=== PATIENT | female | born 1980 | race Caucasian/White ===

== ENCOUNTER 2018-09-13 23:10 | Inpatient (IN) | payer MEDICAID ==
[~2018-09-13] VITALS: Ht 160 cm; Wt 73.0 kg
[~2018-09-13 23:10] MED LIST: PREN1TAB49 PO; SS SC
[2018-09-13 23:26] VITALS: Ht 160 cm; Wt 73.0 kg
[2018-09-13 23:28] VITALS: BP 128/71; PULSE 71; RESP 18
[2018-09-14] MEDS ORDERED: BUTORPHANOL 2 MG INJ IV PRN (01:00)
[2018-09-14] MEDS ORDERED: OXYTOCIN 30 UNITS/LR 500 ML IV PRN ×2 (01:00→12:00)
[2018-09-14] MEDS ORDERED: CARBOPROST 250 MCG INJ IM PRN ×2 (01:00→12:00)
[2018-09-14] MEDS ORDERED: AMPICILLIN 1 GM/NS (PMX) 50 ML IV PRN (01:00)
[2018-09-14] MEDS ORDERED: OXYTOCIN 30 UNITS/LR 500 ML IV SCH ×2 (01:00)
[2018-09-14] MEDS ORDERED: METHYLERGONOVINE 0.2 MG INJ IM PRN ×2 (01:00→12:00)
[2018-09-14] MEDS ORDERED: MISOPROSTOL 200 MCG TAB PR PRN ×2 (01:00→12:00)
[2018-09-14] MEDS ORDERED: IBUPROFEN 600 MG TAB PO PRN (01:00)
[2018-09-14] MEDS ORDERED: LIDOCAINE 1% (MPF) 30 ML INJ INJ PRN (01:00)
[2018-09-14] MEDS ORDERED: AMPICILLIN 2 GM/NS (PMX) 100 ML IV PRN (01:00)
--- NOTE | 2018-09-14 01:49 | TRIAGE ---
OB Triage Datetime Report Generated by CPN: 09/14/2018 01:48 Datetime: 09/14/2018 00:59 Assessment Type: Admission Assessment Time of Arrival: 09/14/2018 00:45 EGA: 36.4 Arrived By: Ambulatory Arrived From: Home Vaginal Bleeding: None Maternal Assessment Level of Consciousness: Fully Conscious DTR's/Clonus: DTRs 2+; No Clonus Headache: Denies Blurred Vision: No Respiratory Effort: Unlabored; Regular Rhythm; Equal Expansion Breath Sounds, Left: Clear and Equal Breath Sounds, Right: Clear and Equal Nausea/Vomiting: Denies RUQ Epigastric Pain: Denies Lower Extremities Edema: None Degree: None Upper Extremities Edema: None Degree: None Facial Edema: None Fall Risk Assessment History of Falling: (0) No Secondary Diagnosis: (0) No Ambulatory Aid: (0) Bedrest/Nurse Assist IV Therapy: (20) Yes Gait: (0) Normal/Bedrest/Immobile Mental Status: (0) Oriented to Own Ability Fall Score: 20 Fall Risk Score Definition: No Risk: No action required Pain Assessment Pain Scale: 5 Pain Presence: Intermittent Pain Type: Contraction Pain Location: Abdomen; Back Pain Goal: 2 Pain Assessment Comments: PT STATES SHE MAY WANT EPIDURAL AT A LATER TIME Membrane Status: Intact Datetime: 09/14/2018 00:00 Stage of : OB Triage Labor Evaluation Frequency: IRREG Monitor Mode: External Duration (sec)2399: 50-140 Quality: Mild Pattern: Normal: <= 5 Contractions in 10 Minutes Resting Tone [place]: Relaxed Heart Rate FHR Baseline Rate: 140 Monitor Mode: External US Variability: Moderate 6-25 bpm Accelerations: 15X15 Decelerations: None Category: Category I Pain Assessment Pain Scale: 0 Pain Presence: None/Denies Pain Goal: 3 Pain Assessment Comments: STATED ON /OFF PAIN FOR 3 DAYS Datetime: 09/13/2018 23:49 Vaginal Exam Dilatation (cms): 3.5 Effacement (%): 70 Station: -3 Exam By: URBANO Vaginal Bleeding: None Cervix, Consistency: Soft Cervix, Position: Posterior Datetime: 09/13/2018 23:30 Stage of : OB Triage Assessment Type: Triage Maternal Assessment Level of Consciousness: Fully Conscious DTR's/Clonus: DTRs 2+; No Clonus Headache: Denies Blurred Vision: No Respiratory Effort: Unlabored; Regular Rhythm; Equal Expansion Breath Sounds, Left: Clear and Equal Breath Sounds, Right: Clear and Equal Nausea/Vomiting: Denies RUQ Epigastric Pain: Denies Lower Extremities Edema: None Upper Extremities Edema: None Facial Edema: None Temperature Route: Oral Fall Risk Assessment History of Falling: (0) No Secondary Diagnosis: (0) No Ambulatory Aid: (0) Bedrest/Nurse Assist IV Therapy: (0) No Gait: (0) Normal/Bedrest/Immobile Mental Status: (0) Oriented to Own Ability Fall Score: 0 Fall Risk Score Definition: No Risk: No action required Datetime: 09/13/2018 23:15 Time of Arrival: 09/13/2018 23:00 EGA: 36.3 Arrived By: Wheelchair Arrived From: Home Chief Complaint: CONTRACTIONS FOR 3 DAYS Movement: Present Contractions: Irregular Rupture of Membranes: Denies Vaginal Bleeding: None Vaginal Discharge: Denies Patient Complaints: Contractions Additional Patient Complaints: BETAMETHASONE X2(08/15/18 AND 08/16/18) Time Provider Notified: 09/13/2018 23:55 Provider Notified: ABUSLEME Initial Plan: EFM, VE Datetime: 08/19/2018 14:38 Labor Evaluation Frequency: 0 Monitor Mode: External Duration (sec)2399: 0 Resting Tone [place]: Relaxed Heart Rate FHR Baseline Rate: 150 Monitor Mode: External US FHR Baseline Changes: No Baseline Change Variability: Moderate 6-25 bpm Accelerations: 10X10 Decelerations: None Category: Category I Datetime: 08/19/2018 14:00 Stage of : Antepartum Labor Evaluation Frequency: 0 Monitor Mode: External Resting Tone [place]: Relaxed Heart Rate FHR Baseline Rate: 150 Monitor Mode: External US FHR Baseline Changes: No Baseline Change Variability: Moderate 6-25 bpm Accelerations: 10X10 Decelerations: None Category: Category I Datetime: 08/19/2018 13:00 Stage of : Antepartum Labor Evaluation Frequency: 0 Monitor Mode: External Resting Tone [place]: Relaxed Heart Rate FHR Baseline Rate: 145 Monitor Mode: External US FHR Baseline Changes: No Baseline Change Variability: Moderate 6-25 bpm Accelerations: 10X10 Decelerations: None Category: Category I Datetime: 08/19/2018 12:21 Bedside Blood Glucose: 79 Datetime: 08/19/2018 12:00 Stage of : Antepartum Labor Evaluation Frequency: OCCASSIONAL Monitor Mode: External Duration (sec)2399: 40-60 Quality: Mild Resting Tone [place]: Relaxed Heart Rate FHR Baseline Rate: 150 Monitor Mode: External US FHR Baseline Changes: No Baseline Change Variability: Moderate 6-25 bpm Accelerations: 10X10 Decelerations: None Category: Category I Datetime: 08/19/2018 11:00 Stage of : Antepartum Monitor Mode: External Quality: Mild Resting Tone [place]: Relaxed Contraction Comments: MILD UTERINE IRRITABILITY NOTED WITH 2 CTX'S ABOUT 60S OVER PAST HR. PT DENIE S ANY PAIN AT THIS TIME. Heart Rate FHR Baseline Rate: 150 Monitor Mode: External US FHR Baseline Changes: No Baseline Change Variability: Moderate 6-25 bpm Accelerations: 10X10 Decelerations: None Category: Category I Datetime: 08/19/2018 10:19 Comments: RN REMAINS AT BS ADJUSTING EFM, MOVEMENT NOTED Datetime: 08/19/2018 10:00 Monitor Mode: External Quality: Mild Resting Tone [place]: Relaxed Contraction Comments: UTERINE IRRITABILITY NOTED Heart Rate FHR Baseline Rate: 150 Monitor Mode: External US Variability: Moderate 6-25 bpm Accelerations: None Decelerations: None Category: Category I Datetime: 08/19/2018 09:00 Stage of : Antepartum Temperature Route: Oral Labor Evaluation Frequency: OCCASSIONAL Monitor Mode: External Duration (sec)2399: 40-90 Quality: Mild Resting Tone [place]: Relaxed Contraction Comments: PT DENIES FEELING CTX'S OR PAIN AT THIS TIME, REPORTS FEELING "A LITTLE PRESS URE NOW AND THEN." Heart Rate FHR Baseline Rate: 145 Monitor Mode: External US FHR Baseline Changes: No Baseline Change Variability: Moderate 6-25 bpm Accelerations: 10X10 Decelerations: None Category: Category I Datetime: 08/19/2018 08:00 Assessment Type: Ongoing Assessment Maternal Assessment Level of Consciousness: Fully Conscious DTR's/Clonus: DTRs 2+ Headache: Denies Blurred Vision: No Respiratory Effort: Unlabored Breath Sounds, Left: Clear and Equal Breath Sounds, Right: Clear and Equal Nausea/Vomiting: Denies RUQ Epigastric Pain: Denies Lower Extremities Edema: None Degree: None Upper Extremities Edema: None Degree: None Facial Edema: None Fall Risk Assessment History of Falling: (0) No Secondary Diagnosis: (15) Yes Ambulatory Aid: (0) Bedrest/Nurse Assist IV Therapy: (20) Yes Gait: (0) Normal/Bedrest/Immobile Mental Status: (0) Oriented to Own Ability Fall Score: 35 Fall Risk Score Definition: Low Risk: Please see standard fall prevention interventions Monitor Mode: External Quality: Mild Resting Tone [place]: Relaxed Contraction Comments: PT DENIES FEELING CTX'S AT THIS TIME Heart Rate FHR Baseline Rate: 145 Monitor Mode: External US FHR Baseline Changes: No Baseline Change Variability: Moderate 6-25 bpm Accelerations: 10X10 Decelerations: None Category: Category I Datetime: 08/19/2018 07:00 Stage of : Antepartum Assessment Type: Ongoing Assessment Labor Evaluation Frequency: irregular Monitor Mode: External Duration (sec)2399: 50-80 Pattern: Normal: <= 5 Contractions in 10 Minutes Resting Tone [place]: Relaxed Heart Rate FHR Baseline Rate: 150 Monitor Mode: External US Variability: Moderate 6-25 bpm Accelerations: 15X15 Decelerations: None Category: Category I Datetime: 08/19/2018 06:45 Monitor Mode: External Monitor Mode: External US Datetime: 08/19/2018 06:00 Stage of : Antepartum Labor Evaluation Frequency: irregular Monitor Mode: External Duration (sec)2399: 50-80 Pattern: Normal: <= 5 Contractions in 10 Minutes Resting Tone [place]: Relaxed Heart Rate FHR Baseline Rate: 145 Monitor Mode: External US Variability: Moderate 6-25 bpm Accelerations: 15X15 Decelerations: None Category: Category I Datetime: 08/19/2018 05:37 Monitor Mode: External Monitor Mode: External US Datetime: 08/19/2018 05:00 Stage of : Antepartum Labor Evaluation Frequency: irregular Monitor Mode: External Duration (sec)2399: 50-60 Pattern: Normal: <= 5 Contractions in 10 Minutes Resting Tone [place]: Relaxed Heart Rate FHR Baseline Rate: 145 Monitor Mode: External US Variability: Moderate 6-25 bpm Accelerations: 15X15 Decelerations: None Category: Category I Datetime: 08/19/2018 04:00 Stage of : Antepartum Labor Evaluation Frequency: irregular Monitor Mode: External Duration (sec)2399: 50-60 Pattern: Normal: <= 5 Contractions in 10 Minutes Resting Tone [place]: Relaxed Heart Rate FHR Baseline Rate: 145 Monitor Mode: External US Variability: Moderate 6-25 bpm Accelerations: 15X15 Decelerations: None Category: Category I Datetime: 08/19/2018 03:52 Monitor Mode: External Monitor Mode: External US Datetime: 08/19/2018 03:00 Stage of : Antepartum Temperature Route: Oral Labor Evaluation Frequency: irregular x3 Monitor Mode: External Duration (sec)2399: 50-60 Pattern: Normal: <= 5 Contractions in 10 Minutes Resting Tone [place]: Relaxed Heart Rate FHR Baseline Rate: 145 Monitor Mode: External US Variability: Moderate 6-25 bpm Accelerations: 15X15 Decelerations: None Category: Category I Datetime: 08/19/2018 02:00 Stage of : Antepartum Labor Evaluation Frequency: X1 Monitor Mode: External Duration (sec)2399: 70 (Annotations: UTERINE IRRITABILITY NOTED. ) Quality: Mild Heart Rate FHR Baseline Rate: 145 Monitor Mode: External US FHR Baseline Changes: No Baseline Change Variability: Moderate 6-25 bpm Accelerations: 15X15 Decelerations: Variable Category: Category II Pain Presence: None/Denies Datetime: 08/19/2018 01:00 Stage of : Antepartum Labor Evaluation Frequency: X1 Monitor Mode: External Duration (sec)2399: 70 Quality: Mild Heart Rate FHR Baseline Rate: 155 Monitor Mode: External US FHR Baseline Changes: No Baseline Change Variability: Moderate 6-25 bpm Accelerations: 15X15 Category: Category I Pain Presence: None/Denies Datetime: 08/19/2018 00:00 Stage of : Antepartum Monitor Mode: External Duration (sec)2399: 40-60 (Annotations: UTERINE IRRITABILITY NOTED. ) Heart Rate FHR Baseline Rate: 155 Monitor Mode: External US FHR Baseline Changes: No Baseline Change Variability: Moderate 6-25 bpm Accelerations: 15X15 Category: Category I Pain Presence: None/Denies Datetime: 08/18/2018 23:00 Stage of : Antepartum Monitor Mode: External Duration (sec)2399: 40-60 (Annotations: UTERINE IRRITABILITY NOTED. ) Heart Rate FHR Baseline Rate: 155 Monitor Mode: External US FHR Baseline Changes: No Baseline Change Variability: Moderate 6-25 bpm Accelerations: 15X15 Decelerations: Variable Category: Category I Pain Presence: None/Denies Datetime: 08/18/2018 22:16 Stage of : Antepartum Datetime: 08/18/2018 22:00 Stage of : Antepartum Monitor Mode: External Duration (sec)2399: 40-60 (Annotations: UTERINE IRRITABILITY NOTED. ) Heart Rate FHR Baseline Rate: 150 Monitor Mode: External US FHR Baseline Changes: No Baseline Change Variability: Moderate 6-25 bpm Accelerations: 15X15 Category: Category I Pain Presence: None/Denies Datetime: 08/18/2018 21:00 Stage of : Antepartum Monitor Mode: External Duration (sec)2399: 30-70 Heart Rate FHR Baseline Rate: 155 Monitor Mode: External US FHR Baseline Changes: No Baseline Change Variability: Moderate 6-25 bpm Accelerations: 15X15 Decelerations: Variable Category: Category II Pain Presence: None/Denies Datetime: 08/18/2018 20:41 Assessment Type: Ongoing Assessment Maternal Assessment Level of Consciousness: Fully Conscious DTR's/Clonus: DTRs 2+; No Clonus Headache: Denies Blurred Vision: No Respiratory Effort: Unlabored; Regular Rhythm; Equal Expansion Nausea/Vomiting: Denies RUQ Epigastric Pain: Denies Lower Extremities Edema: None Degree: None Upper Extremities Edema: None Degree: None Facial Edema: None Fall Risk Assessment History of Falling: (0) No Secondary Diagnosis: (0) No Ambulatory Aid: (0) Bedrest/Nurse Assist IV Therapy: (0) No Gait: (0) Normal/Bedrest/Immobile Mental Status: (0) Oriented to Own Ability Fall Score: 0 Fall Risk Score Definition: No Risk: No action required Datetime: 08/18/2018 20:00 Stage of : Antepartum Temperature Route: Oral Labor Evaluation Frequency: 0 Monitor Mode: External Heart Rate FHR Baseline Rate: 160 Monitor Mode: External US FHR Baseline Changes: No Baseline Change Variability: Moderate 6-25 bpm Accelerations: 15X15 Decelerations: None Category: Category I Pain Assessment Pain Scale: 0 Pain Presence: None/Denies Pain Type: N/A Pain Goal: 0 Datetime: 08/18/2018 19:00 Labor Evaluation Frequency: X5 Monitor Mode: External Duration (sec)2399: 60-80 Quality: Mild Pattern: Normal: <= 5 Contractions in 10 Minutes Resting Tone [place]: Relaxed Heart Rate FHR Baseline Rate: 150 Monitor Mode: External US FHR Baseline Changes: No Baseline Change Variability: Moderate 6-25 bpm Accelerations: 10X10 Decelerations: None Category: Category I Pain Assessment Pain Scale: 0 Pain Presence: None/Denies Pain Type: N/A Pain Goal: 0 Datetime: 08/18/2018 18:01 Labor Evaluation Frequency: X6 Monitor Mode: External Duration (sec)2399: 40-60 Quality: Mild Pattern: Normal: <= 5 Contractions in 10 Minutes Resting Tone [place]: Relaxed Heart Rate FHR Baseline Rate: 140 Monitor Mode: External US FHR Baseline Changes: No Baseline Change Variability: Moderate 6-25 bpm Accelerations: 10X10 Decelerations: None Category: Category I Pain Assessment Pain Scale: 0 Pain Presence: None/Denies Pain Type: N/A Pain Goal: 0 Datetime: 08/18/2018 17:00 Labor Evaluation Frequency: X9 Monitor Mode: External Duration (sec)2399: 30-60 Quality: Mild Pattern: Normal: <= 5 Contractions in 10 Minutes Resting Tone [place]: Relaxed Heart Rate FHR Baseline Rate: 150 Monitor Mode: External US FHR Baseline Changes: No Baseline Change Variability: Moderate 6-25 bpm Accelerations: 10X10 Decelerations: None Category: Category I Pain Assessment Pain Scale: 0 Pain Presence: None/Denies Pain Type: N/A Pain Goal: 0 Datetime: 08/18/2018 16:00 Labor Evaluation Frequency: X4 Monitor Mode: External Duration (sec)2399: 60 Quality: Mild Pattern: Normal: <= 5 Contractions in 10 Minutes Resting Tone [place]: Relaxed Heart Rate FHR Baseline Rate: 150 Monitor Mode: External US FHR Baseline Changes: No Baseline Change Variability: Moderate 6-25 bpm Accelerations: 15X15 Decelerations: None Category: Category I Pain Assessment Pain Scale: 0 Pain Presence: None/Denies Pain Type: N/A Pain Goal: 0 Membrane Status: Intact Datetime: 08/18/2018 15:00 Labor Evaluation Frequency: x4 Monitor Mode: External Duration (sec)2399: 30-40 Quality: Mild Pattern: Normal: <= 5 Contractions in 10 Minutes Resting Tone [place]: Relaxed Heart Rate FHR Baseline Rate: 150 Monitor Mode: External US FHR Baseline Changes: No Baseline Change Variability: Moderate 6-25 bpm Accelerations: 10X10 Decelerations: None Category: Category I Pain Assessment Pain Scale: 0 Pain Presence: None/Denies Pain Type: N/A Pain Goal: 0 Membrane Status: Intact Datetime: 08/18/2018 14:00 Labor Evaluation Frequency: IRRITABILITY Monitor Mode: External Duration (sec)2399: 20-30 Heart Rate FHR Baseline Rate: 160 Monitor Mode: External US FHR Baseline Changes: No Baseline Change Variability: Moderate 6-25 bpm Accelerations: 15X15 Decelerations: None Category: Category I Pain Assessment Pain Scale: 0 Pain Presence: None/Denies Pain Type: N/A Pain Goal: 0 Datetime: 08/18/2018 13:00 Labor Evaluation Frequency: 2-17 Monitor Mode: External Duration (sec)2399: 40-60 Quality: Mild Pattern: Normal: <= 5 Contractions in 10 Minutes Resting Tone [place]: Relaxed Heart Rate FHR Baseline Rate: 160 Monitor Mode: External US FHR Baseline Changes: No Baseline Change Variability: Moderate 6-25 bpm Accelerations: 10X10 Decelerations: None Category: Category I Pain Assessment Pain Scale: 0 Pain Presence: None/Denies Pain Type: N/A Pain Goal: 0 Datetime: 08/18/2018 12:00 Labor Evaluation Frequency: X1 Monitor Mode: External Duration (sec)2399: 60 Quality: Mild Pattern: Normal: <= 5 Contractions in 10 Minutes Resting Tone [place]: Relaxed Heart Rate FHR Baseline Rate: 155 Monitor Mode: External US FHR Baseline Changes: No Baseline Change Variability: Moderate 6-25 bpm Accelerations: 15X15 Decelerations: None Category: Category I Pain Assessment Pain Scale: 0 Pain Presence: None/Denies Pain Type: N/A Pain Goal: 0 Membrane Status: Intact Datetime: 08/18/2018 11:00 Labor Evaluation Frequency: X6 Monitor Mode: External Duration (sec)2399: 40 Quality: Mild Pattern: Normal: <= 5 Contractions in 10 Minutes Resting Tone [place]: Relaxed Heart Rate FHR Baseline Rate: 150 Monitor Mode: External US FHR Baseline Changes: No Baseline Change Variability: Moderate 6-25 bpm Accelerations: 10X10 Decelerations: None Category: Category I Pain Assessment Pain Scale: 0 Pain Presence: None/Denies Pain Type: N/A Pain Goal: 0 Datetime: 08/18/2018 10:00 Labor Evaluation Frequency: X2 Monitor Mode: External Duration (sec)2399: 60 Quality: Mild Pattern: Normal: <= 5 Contractions in 10 Minutes Resting Tone [place]: Relaxed Heart Rate FHR Baseline Rate: 150 Monitor Mode: External US FHR Baseline Changes: No Baseline Change Variability: Moderate 6-25 bpm Accelerations: 10X10 Decelerations: None Category: Category I Pain Assessment Pain Scale: 0 Pain Presence: None/Denies Pain Type: N/A Pain Goal: 0 Datetime: 08/18/2018 09:00 Labor Evaluation Frequency: 6-17 Monitor Mode: External Duration (sec)2399: 60-100 Quality: Mild Pattern: Normal: <= 5 Contractions in 10 Minutes Resting Tone [place]: Relaxed Heart Rate FHR Baseline Rate: 155 Monitor Mode: External US FHR Baseline Changes: No Baseline Change Variability: Moderate 6-25 bpm Accelerations: 10X10 Decelerations: None Category: Category I Pain Assessment Pain Scale: 0 Pain Presence: None/Denies Pain Type: N/A Pain Goal: 0 Datetime: 08/18/2018 07:55 Assessment Type: Ongoing Assessment Maternal Assessment Level of Consciousness: Fully Conscious DTR's/Clonus: DTRs 2+; No Clonus Headache: Denies Blurred Vision: No Respiratory Effort: Unlabored; Regular Rhythm; Equal Expansion Nausea/Vomiting: Denies RUQ Epigastric Pain: Denies Lower Extremities Edema: None Degree: None Upper Extremities Edema: None Degree: None Facial Edema: None Fall Risk Assessment History of Falling: (0) No Secondary Diagnosis: (0) No Ambulatory Aid: (0) Bedrest/Nurse Assist IV Therapy: (0) No Gait: (0) Normal/Bedrest/Immobile Mental Status: (0) Oriented to Own Ability Fall Score: 0 Fall Risk Score Definition: No Risk: No action required Datetime: 08/18/2018 07:51 Labor Evaluation Frequency: 1-5 Monitor Mode: External Duration (sec)2399: 30-90 Quality: Mild Pattern: Normal: <= 5 Contractions in 10 Minutes Resting Tone [place]: Relaxed Heart Rate FHR Baseline Rate: 145 Monitor Mode: External US FHR Baseline Changes: No Baseline Change Variability: Moderate 6-25 bpm Accelerations: 10X10 Decelerations: None Category: Category I Pain Assessment Pain Scale: 0 Pain Presence: None/Denies Pain Type: N/A Pain Goal: 0 Membrane Status: Intact Datetime: 08/18/2018 07:00 Labor Evaluation Frequency: irregular with irritability Monitor Mode: External Duration (sec)2399: 40-100 Heart Rate FHR Baseline Rate: 145 Monitor Mode: External US Variability: Moderate 6-25 bpm Accelerations: 15X15 Decelerations: None Datetime: 08/18/2018 06:49 Pain Assessment Comments: Patient appears comfortable and is sleeping. Datetime: 08/18/2018 06:05 Stage of : Antepartum Pain Assessment Pain Scale: 0 Pain Presence: None/Denies Pain Type: N/A Pain Assessment Comments: Patient denies feeling pain at this time Datetime: 08/18/2018 06:00 Labor Evaluation Frequency: 2-21 with irritability Monitor Mode: External Duration (sec)2399: 40-180 Heart Rate FHR Baseline Rate: 145 Monitor Mode: External US Variability: Minimal - Undetectable to <=5 bpm Accelerations: 15X15 Decelerations: None Datetime: 08/18/2018 05:00 Labor Evaluation Frequency: x6 with irritability Monitor Mode: External Duration (sec)2399: 40-60 Heart Rate FHR Baseline Rate: 150 Monitor Mode: External US Variability: Moderate 6-25 bpm Accelerations: 10X10 Decelerations: Variable Datetime: 08/18/2018 04:49 Pain Assessment Pain Scale: 0 Pain Presence: None/Denies Pain Type: N/A Pain Assessment Comments: Patient denies feeling contractions at this time. Datetime: 08/18/2018 04:25 Pain Assessment Pain Scale: 0 Pain Presence: None/Denies Pain Type: N/A Pain Assessment Comments: Patient appears comfortable and is sleeping between care. Patient denies feeling contractions at this time. Datetime: 08/18/2018 04:00 Labor Evaluation Frequency: x1 with irritability Monitor Mode: External Duration (sec)2399: 60 Heart Rate FHR Baseline Rate: 150 Monitor Mode: External US Variability: Moderate 6-25 bpm Accelerations: 15X15 Decelerations: None Datetime: 08/18/2018 03:13 Pain Assessment Pain Scale: 0 Pain Presence: None/Denies Pain Type: N/A Pain Assessment Comments: Patient appears comfortable and is sleeping between care. Patient denies feeling contractions at this time. Datetime: 08/18/2018 03:10 Stage of : Antepartum Temperature Route: Oral Datetime: 08/18/2018 03:00 Labor Evaluation Frequency: x2 with irritabiity Monitor Mode: External Duration (sec)2399: 50-110 Heart Rate FHR Baseline Rate: 145 Monitor Mode: External US Variability: Minimal - Undetectable to <=5 bpm Accelerations: None Decelerations: None Datetime: 08/18/2018 02:00 Labor Evaluation Frequency: irritability Monitor Mode: External Heart Rate FHR Baseline Rate: 150 Monitor Mode: External US Variability: Minimal - Undetectable to <=5 bpm Accelerations: None Decelerations: None Datetime: 08/18/2018 01:16 Pain Assessment Comments: Patient appears comfortable and is snoring while she is sleeping. Datetime: 08/18/2018 01:15 Labor Evaluation Frequency: none Monitor Mode: External Heart Rate FHR Baseline Rate: 150 Monitor Mode: External US Variability: Minimal - Undetectable to <=5 bpm Accelerations: None Decelerations: Variable Datetime: 08/18/2018 00:00 Labor Evaluation Frequency: none Monitor Mode: External Heart Rate FHR Baseline Rate: 145 Monitor Mode: External US Variability: Minimal - Undetectable to <=5 bpm Accelerations: None Decelerations: None Datetime: 08/17/2018 23:59 Stage of : Antepartum Temperature Route: Oral Contraction Comments: Patient denies feeling contractions at this time. Pain Assessment Pain Scale: 0 Pain Presence: None/Denies Pain Type: N/A Pain Assessment Comments: Patient denies feeling contractions Datetime: 08/17/2018 23:00 Labor Evaluation Frequency: x3 with irritability Monitor Mode: External Duration (sec)2399: 50-80 Heart Rate FHR Baseline Rate: 145 Monitor Mode: External US Variability: Moderate 6-25 bpm Accelerations: 15X15 Decelerations: None Datetime: 08/17/2018 22:10 Pain Assessment Pain Scale: 0 Pain Presence: None/Denies Pain Type: N/A Pain Assessment Comments: Patient denies feeling contractions Datetime: 08/17/2018 22:00 Labor Evaluation Frequency: occasional with irritability Monitor Mode: External Duration (sec)2399: 60-80 Heart Rate FHR Baseline Rate: 150 Monitor Mode: External US Variability: Moderate 6-25 bpm Accelerations: 15X15 Decelerations: None Datetime: 08/17/2018 21:05 Pain Assessment Pain Scale: 0 Pain Presence: None/Denies Pain Type: N/A Pain Assessment Comments: Patient denies feeling contraction at this time. Datetime: 08/17/2018 21:00 Labor Evaluation Frequency: irritability Monitor Mode: External Heart Rate FHR Baseline Rate: 150 Monitor Mode: External US Variability: Moderate 6-25 bpm Accelerations: None Decelerations: None Datetime: 08/17/2018 20:00 Labor Evaluation Frequency: x1 Monitor Mode: External Duration (sec)2399: 120 Heart Rate FHR Baseline Rate: 150 Monitor Mode: External US Variability: Moderate 6-25 bpm Accelerations: 15X15 Decelerations: None Datetime: 08/17/2018 19:35 Stage of : Antepartum Assessment Type: Ongoing Assessment Maternal Assessment Level of Consciousness: Fully Conscious DTR's/Clonus: DTRs 2+; No Clonus Headache: Denies Blurred Vision: No Respiratory Effort: Unlabored; Regular Rhythm; Equal Expansion Breath Sounds, Left: Clear and Equal Breath Sounds, Right: Clear and Equal Nausea/Vomiting: Denies RUQ Epigastric Pain: Denies Lower Extremities Edema: None Degree: None Upper Extremities Edema: None Degree: None Facial Edema: None Temperature Route: Oral Fall Risk Assessment History of Falling: (0) No Secondary Diagnosis: (0) No Ambulatory Aid: (0) Bedrest/Nurse Assist IV Therapy: (20) Yes Gait: (0) Normal/Bedrest/Immobile Mental Status: (0) Oriented to Own Ability Fall Score: 20 Fall Risk Score Definition: No Risk: No action required Contraction Comments: Patient denies feeling contractions Comments: Patient states she feels active movement. Pain Assessment Pain Scale: 0 Pain Presence: None/Denies Pain Type: N/A Pain Assessment Comments: Patient denies feeling contractions Datetime: 08/17/2018 19:34 Monitor Mode: Palpation Resting Tone [place]: Relaxed Datetime: 08/17/2018 18:22 Labor Evaluation Frequency: 0 Monitor Mode: External Resting Tone [place]: Relaxed Heart Rate FHR Baseline Rate: 140 Monitor Mode: External US FHR Baseline Changes: No Baseline Change Variability: Moderate 6-25 bpm Accelerations: 15X15 Decelerations: None Category: Category I Datetime: 08/17/2018 17:22 Bedside Blood Glucose: 177 Datetime: 08/17/2018 17:14 Labor Evaluation Frequency: 3 Monitor Mode: External Duration (sec)2399: 60-100 Quality: Mild Resting Tone [place]: Relaxed Contraction Comments: pt denies feeling contractions Heart Rate FHR Baseline Rate: 140 Monitor Mode: External US FHR Baseline Changes: No Baseline Change Variability: Moderate 6-25 bpm Accelerations: 10X10 Decelerations: None Category: Category I Datetime: 08/17/2018 16:31 Labor Evaluation Frequency: 1 Monitor Mode: External Duration (sec)2399: 70 Quality: Mild Resting Tone [place]: Relaxed Heart Rate FHR Baseline Rate: 140 Monitor Mode: External US FHR Baseline Changes: No Baseline Change Variability: Moderate 6-25 bpm Accelerations: 15X15 Decelerations: None Category: Category I Datetime: 08/17/2018 15:26 Labor Evaluation Frequency: occasional Monitor Mode: External Quality: Mild Resting Tone [place]: Relaxed Contraction Comments: pt denies feeling contractions Heart Rate FHR Baseline Rate: 140 Monitor Mode: External US FHR Baseline Changes: No Baseline Change Variability: Moderate 6-25 bpm Accelerations: 15X15 Decelerations: None Category: Category I Datetime: 08/17/2018 15:00 Labor Evaluation Frequency: occasional irrritability Monitor Mode: External Quality: Mild Resting Tone [place]: Relaxed Heart Rate FHR Baseline Rate: 140 Monitor Mode: External US FHR Baseline Changes: No Baseline Change Variability: Moderate 6-25 bpm Accelerations: 15X15 Decelerations: None Category: Category I Pain Presence: None/Denies Datetime: 08/17/2018 13:57 Labor Evaluation Frequency: 0 Monitor Mode: External Resting Tone [place]: Relaxed Heart Rate FHR Baseline Rate: 140 Monitor Mode: External US FHR Baseline Changes: No Baseline Change Variability: Moderate 6-25 bpm Accelerations: 10X10 Decelerations: None Category: Category I Datetime: 08/17/2018 12:58 Labor Evaluation Frequency: 0 Monitor Mode: External Resting Tone [place]: Relaxed Heart Rate FHR Baseline Rate: 140 FHR Baseline Changes: No Baseline Change Variability: Moderate 6-25 bpm Accelerations: 10X10 Decelerations: None Category: Category I Datetime: 08/17/2018 12:33 Bedside Blood Glucose: 149 Datetime: 08/17/2018 12:06 Labor Evaluation Frequency: 0 Monitor Mode: External Resting Tone [place]: Relaxed Heart Rate FHR Baseline Rate: 130 Monitor Mode: External US FHR Baseline Changes: No Baseline Change Variability: Moderate 6-25 bpm Accelerations: 15X15 Decelerations: None Category: Category I Datetime: 08/17/2018 11:21 Labor Evaluation Frequency: 1 Monitor Mode: External Duration (sec)2399: 60 Quality: Mild Resting Tone [place]: Relaxed Heart Rate FHR Baseline Rate: 130 Monitor Mode: External US FHR Baseline Changes: No Baseline Change Variability: Minimal - Undetectable to <=5 bpm Accelerations: 15X15 Decelerations: None Category: Category II Pain Presence: None/Denies Datetime: 08/17/2018 11:01 Bedside Blood Glucose: 186 Datetime: 08/17/2018 09:06 Labor Evaluation Frequency: occasional Monitor Mode: External Duration (sec)2399: 50-60 Quality: Mild Resting Tone [place]: Relaxed Heart Rate FHR Baseline Rate: 120 Monitor Mode: External US FHR Baseline Changes: No Baseline Change Variability: Moderate 6-25 bpm Accelerations: 15X15 Decelerations: None Category: Category I Datetime: 08/17/2018 08:22 Bedside Blood Glucose: 173 Datetime: 08/17/2018 07:54 Assessment Type: Ongoing Assessment Maternal Assessment Level of Consciousness: Fully Conscious DTR's/Clonus: DTRs 2+; No Clonus Headache: Denies Blurred Vision: No Respiratory Effort: Unlabored; Regular Rhythm; Equal Expansion Breath Sounds, Left: Clear and Equal Breath Sounds, Right: Clear and Equal Nausea/Vomiting: Denies RUQ Epigastric Pain: Denies Facial Edema: None Fall Risk Assessment History of Falling: (0) No Secondary Diagnosis: (0) No Ambulatory Aid: (0) Bedrest/Nurse Assist IV Therapy: (20) Yes Gait: (0) Normal/Bedrest/Immobile Mental Status: (0) Oriented to Own Ability Fall Score: 20 Fall Risk Score Definition: No Risk: No action required Datetime: 08/17/2018 07:53 Labor Evaluation Frequency: q3-5 Monitor Mode: External Duration (sec)2399: 50 Quality: Mild Resting Tone [place]: Relaxed Heart Rate FHR Baseline Rate: 130 FHR Baseline Changes: No Baseline Change Variability: Moderate 6-25 bpm Accelerations: 15X15 Decelerations: Variable Category: Category II Pain Assessment Pain Scale: 2 Pain Location: Head Datetime: 08/17/2018 07:00 Monitor Mode: External Resting Tone [place]: Relaxed Heart Rate FHR Baseline Rate: 135 Monitor Mode: External US Variability: Moderate 6-25 bpm Decelerations: None Category: Category I Datetime: 08/17/2018 06:00 Labor Evaluation Frequency: occasional Monitor Mode: External Duration (sec)2399: 70 Quality: Mild Pattern: Normal: <= 5 Contractions in 10 Minutes Resting Tone [place]: Relaxed Heart Rate FHR Baseline Rate: 135 Monitor Mode: External US Variability: Moderate 6-25 bpm Accelerations: 15X15 Decelerations: None Category: Category I Datetime: 08/17/2018 05:36 Maternal Assessment Level of Consciousness: Fully Conscious DTR's/Clonus: DTRs 2+; No Clonus Headache: Denies Blurred Vision: No Respiratory Effort: Unlabored; Regular Rhythm; Equal Expansion Breath Sounds, Left: Clear and Equal Breath Sounds, Right: Clear and Equal RUQ Epigastric Pain: Denies Pain Assessment Pain Scale: 5 Pain Presence: Constant Pain Type: Ache Pain Location: Head Pain Goal: 2 Pain Relief Measures: Comfort Measures Pain Assessment Comments: pt states she has a mild headache but would not like tylenol at this time Datetime: 08/17/2018 05:00 Labor Evaluation Frequency: OCCASIONAL Monitor Mode: External Duration (sec)2399: 60-120 Quality: Mild Pattern: Normal: <= 5 Contractions in 10 Minutes Resting Tone [place]: Relaxed Heart Rate FHR Baseline Rate: 130 Monitor Mode: External US Variability: Moderate 6-25 bpm Accelerations: 15X15 Decelerations: None Category: Category I Datetime: 08/17/2018 04:00 Monitor Mode: External Resting Tone [place]: Relaxed Heart Rate FHR Baseline Rate: 135 Monitor Mode: External US Variability: Moderate 6-25 bpm Accelerations: 15X15 Decelerations: None Category: Category I Datetime: 08/17/2018 03:33 Monitor Mode: External Monitor Mode: External US Datetime: 08/17/2018 03:09 Maternal Assessment Level of Consciousness: Fully Conscious DTR's/Clonus: DTRs 2+; No Clonus Headache: Denies Blurred Vision: No Respiratory Effort: Unlabored; Regular Rhythm; Equal Expansion Breath Sounds, Left: Clear and Equal Breath Sounds, Right: Clear and Equal Nausea/Vomiting: Denies RUQ Epigastric Pain: Denies Pain Assessment Pain Scale: 0 Pain Presence: None/Denies Pain Type: N/A Datetime: 08/17/2018 03:00 Labor Evaluation Frequency: occasional Monitor Mode: External Duration (sec)2399: 120 Quality: Mild Pattern: Normal: <= 5 Contractions in 10 Minutes Resting Tone [place]: Relaxed Heart Rate FHR Baseline Rate: 130 Monitor Mode: External US Variability: Moderate 6-25 bpm Accelerations: 15X15 Decelerations: Late Category: Category II Datetime: 08/17/2018 02:00 Labor Evaluation Frequency: x2 Monitor Mode: External Duration (sec)2399: 90-100 Quality: Mild Pattern: Normal: <= 5 Contractions in 10 Minutes Resting Tone [place]: Relaxed Heart Rate FHR Baseline Rate: 125 Monitor Mode: External US Variability: Moderate 6-25 bpm Decelerations: None Category: Category I Datetime: 08/17/2018 01:00 Labor Evaluation Frequency: OCCASIONAL Monitor Mode: External Duration (sec)2399: 60-100 Quality: Mild Pattern: Normal: <= 5 Contractions in 10 Minutes Resting Tone [place]: Relaxed Heart Rate FHR Baseline Rate: 130 Monitor Mode: External US Variability: Moderate 6-25 bpm Decelerations: Late Category: Category II Datetime: 08/17/2018 00:00 Labor Evaluation Frequency: x1 Monitor Mode: External Duration (sec)2399: 90 Quality: Mild Pattern: Normal: <= 5 Contractions in 10 Minutes Resting Tone [place]: Relaxed Heart Rate FHR Baseline Rate: 130 Monitor Mode: External US Variability: Moderate 6-25 bpm Datetime: 08/16/2018 23:00 Labor Evaluation Frequency: x1 Monitor Mode: External Duration (sec)2399: 100 Quality: Mild Pattern: Normal: <= 5 Contractions in 10 Minutes Resting Tone [place]: Relaxed Heart Rate FHR Baseline Rate: 125 Monitor Mode: External US Variability: Moderate 6-25 bpm Decelerations: None Category: Category I Datetime: 08/16/2018 22:23 Maternal Assessment Level of Consciousness: Fully Conscious DTR's/Clonus: DTRs 2+; No Clonus Headache: Denies Blurred Vision: No Respiratory Effort: Unlabored; Regular Rhythm; Equal Expansion Breath Sounds, Left: Clear and Equal Breath Sounds, Right: Clear and Equal Nausea/Vomiting: Denies Monitor Mode: External US Pain Assessment Pain Scale: 0 Pain Presence: None/Denies Pain Type: N/A Datetime: 08/16/2018 22:00 Labor Evaluation Frequency: X1 Monitor Mode: External Duration (sec)2399: 80 Quality: Mild Pattern: Normal: <= 5 Contractions in 10 Minutes Resting Tone [place]: Relaxed Heart Rate FHR Baseline Rate: 125 Monitor Mode: External US Variability: Moderate 6-25 bpm Accelerations: 15X15 Decelerations: None Category: Category I Datetime: 08/16/2018 21:13 Maternal Assessment Level of Consciousness: Fully Conscious DTR's/Clonus: DTRs 2+; No Clonus Headache: Denies Blurred Vision: No Respiratory Effort: Unlabored; Regular Rhythm; Equal Expansion Breath Sounds, Left: Clear and Equal Breath Sounds, Right: Clear and Equal Nausea/Vomiting: Denies Bedside Blood Glucose: 191 Pain Assessment Pain Scale: 0 Pain Presence: None/Denies Pain Type: N/A Datetime: 08/16/2018 21:00 Labor Evaluation Frequency: IRREGULAR Monitor Mode: External Duration (sec)2399: 60-80 Quality: Mild Pattern: Normal: <= 5 Contractions in 10 Minutes Resting Tone [place]: Relaxed Heart Rate FHR Baseline Rate: 130 Monitor Mode: External US Variability: Moderate 6-25 bpm Accelerations: 15X15 Decelerations: None Category: Category I Datetime: 08/16/2018 20:00 Labor Evaluation Frequency: occasional Monitor Mode: External Duration (sec)2399: 50-70 Quality: Mild Pattern: Normal: <= 5 Contractions in 10 Minutes Resting Tone [place]: Relaxed Heart Rate FHR Baseline Rate: 125 Monitor Mode: External US Variability: Moderate 6-25 bpm Decelerations: None Category: Category I Datetime: 08/16/2018 19:43 Monitor Mode: External US Datetime: 08/16/2018 19:24 Assessment Type: Ongoing Assessment Maternal Assessment Level of Consciousness: Fully Conscious DTR's/Clonus: DTRs 2+; No Clonus Headache: Denies Blurred Vision: No Respiratory Effort: Unlabored; Regular Rhythm; Equal Expansion Breath Sounds, Left: Clear and Equal Breath Sounds, Right: Clear and Equal Nausea/Vomiting: Denies RUQ Epigastric Pain: Denies Lower Extremities Edema: None Degree: None Upper Extremities Edema: None Degree: None Facial Edema: None Fall Risk Assessment History of Falling: (0) No Secondary Diagnosis: (0) No Ambulatory Aid: (0) Bedrest/Nurse Assist IV Therapy: (20) Yes Gait: (0) Normal/Bedrest/Immobile Mental Status: (0) Oriented to Own Ability Fall Score: 20 Fall Risk Score Definition: No Risk: No action required Pain Assessment Pain Scale: 0 Pain Presence: None/Denies Pain Type: N/A Datetime: 08/16/2018 19:01 Maternal Assessment Level of Consciousness: Fully Conscious DTR's/Clonus: DTRs 2+ Headache: Denies Blurred Vision: No Nausea/Vomiting: Denies RUQ Epigastric Pain: Denies Facial Edema: None Labor Evaluation Frequency: X1 Monitor Mode: External Duration (sec)2399: 120 Quality: Mild Pattern: Normal: <= 5 Contractions in 10 Minutes Resting Tone [place]: Relaxed Heart Rate FHR Baseline Rate: 135 Monitor Mode: External US Variability: Moderate 6-25 bpm Accelerations: 15X15 Decelerations: None Category: Category I Pain Presence: None/Denies Pain Type: N/A Datetime: 08/16/2018 17:29 Labor Evaluation Frequency: X2 Monitor Mode: External Duration (sec)2399: 60 Quality: Mild Pattern: Normal: <= 5 Contractions in 10 Minutes Resting Tone [place]: Relaxed Heart Rate FHR Baseline Rate: 135 Monitor Mode: External US Variability: Moderate 6-25 bpm Accelerations: 15X15 Decelerations: None Category: Category I Datetime: 08/16/2018 17:01 Maternal Assessment Level of Consciousness: Fully Conscious DTR's/Clonus: DTRs 2+ Headache: Generalized Blurred Vision: No Nausea/Vomiting: Denies Facial Edema: None Labor Evaluation Frequency: x3 Monitor Mode: External Duration (sec)2399: 80-100 Quality: Mild Pattern: Normal: <= 5 Contractions in 10 Minutes Resting Tone [place]: Relaxed Heart Rate FHR Baseline Rate: 135 Monitor Mode: External US Variability: Moderate 6-25 bpm Accelerations: 15X15 Decelerations: None Category: Category I Pain Assessment Pain Scale: 6 Pain Type: Dull Pain Location: Head Pain Goal: 3 Datetime: 08/16/2018 16:01 Maternal Assessment Level of Consciousness: Fully Conscious DTR's/Clonus: DTRs 2+ Headache: Denies Blurred Vision: No Nausea/Vomiting: Denies RUQ Epigastric Pain: Denies Facial Edema: None Labor Evaluation Frequency: x4 Monitor Mode: External Duration (sec)2399: 60-100 Quality: Mild Pattern: Normal: <= 5 Contractions in 10 Minutes Resting Tone [place]: Relaxed Heart Rate FHR Baseline Rate: 135 Variability: Minimal - Undetectable to <=5 bpm Accelerations: 15X15 Category: Category II Datetime: 08/16/2018 15:00 Maternal Assessment Level of Consciousness: Fully Conscious DTR's/Clonus: DTRs 2+ Headache: Denies Blurred Vision: No Nausea/Vomiting: Denies RUQ Epigastric Pain: Denies Facial Edema: None Labor Evaluation Frequency: X6 Monitor Mode: External Duration (sec)2399: 60 Quality: Mild Pattern: Normal: <= 5 Contractions in 10 Minutes Resting Tone [place]: Relaxed Heart Rate FHR Baseline Rate: 135 Monitor Mode: External US Variability: Moderate 6-25 bpm Accelerations: 15X15 Decelerations: None Category: Category I Datetime: 08/16/2018 14:32 Bedside Blood Glucose: 191 Datetime: 08/16/2018 12:58 Maternal Assessment Level of Consciousness: Fully Conscious DTR's/Clonus: DTRs 2+ Headache: Denies Blurred Vision: No Nausea/Vomiting: Denies RUQ Epigastric Pain: Denies Facial Edema: None Labor Evaluation Frequency: X4 Monitor Mode: External Duration (sec)2399: 60-80 Quality: Mild Pattern: Normal: <= 5 Contractions in 10 Minutes Resting Tone [place]: Relaxed Heart Rate FHR Baseline Rate: 125 Monitor Mode: External US Variability: Moderate 6-25 bpm Accelerations: 15X15 Decelerations: None Category: Category I Pain Presence: None/Denies Pain Type: N/A Datetime: 08/16/2018 11:59 Labor Evaluation Frequency: x6 Monitor Mode: External Duration (sec)2399: 50-120 Quality: Mild Pattern: Normal: <= 5 Contractions in 10 Minutes Resting Tone [place]: Relaxed Heart Rate FHR Baseline Rate: 125 Monitor Mode: External US Variability: Moderate 6-25 bpm Accelerations: 15X15 Decelerations: None Category: Category I Datetime: 08/16/2018 10:56 Maternal Assessment Level of Consciousness: Fully Conscious DTR's/Clonus: DTRs 2+ Headache: Denies Blurred Vision: No Nausea/Vomiting: Denies RUQ Epigastric Pain: Denies Facial Edema: None Labor Evaluation Frequency: X3 Monitor Mode: External Duration (sec)2399: 50-90 Quality: Mild Pattern: Normal: <= 5 Contractions in 10 Minutes Resting Tone [place]: Relaxed Heart Rate FHR Baseline Rate: 125 Monitor Mode: External US Variability: Moderate 6-25 bpm Accelerations: 15X15 Decelerations: None Category: Category I Pain Presence: None/Denies Pain Type: N/A Datetime: 08/16/2018 10:00 Maternal Assessment Level of Consciousness: Fully Conscious DTR's/Clonus: DTRs 2+ Headache: Denies Blurred Vision: No Nausea/Vomiting: Denies RUQ Epigastric Pain: Denies Facial Edema: None Labor Evaluation Frequency: X7 Monitor Mode: External Duration (sec)2399: 60-80 Quality: Mild Pattern: Normal: <= 5 Contractions in 10 Minutes Resting Tone [place]: Relaxed Heart Rate FHR Baseline Rate: 125 Monitor Mode: External US Variability: Moderate 6-25 bpm Accelerations: 15X15 Decelerations: None Category: Category I Datetime: 08/16/2018 08:59 Labor Evaluation Frequency: 3-5 Monitor Mode: Palpation Duration (sec)2399: 60-80 Quality: Mild Pattern: Normal: <= 5 Contractions in 10 Minutes Resting Tone [place]: Relaxed Heart Rate FHR Baseline Rate: 135 Monitor Mode: External US Variability: Moderate 6-25 bpm Accelerations: 15X15 Decelerations: None Category: Category I Pain Presence: None/Denies Pain Type: N/A Datetime: 08/16/2018 08:05 Vaginal Exam Dilatation (cms): 1.0 Effacement (%): 60 Station: -3 Exam By: Vaginal Bleeding: Normal Show Datetime: 08/16/2018 08:01 Maternal Assessment Level of Consciousness: Fully Conscious DTR's/Clonus: DTRs 2+ Headache: Denies Blurred Vision: No Nausea/Vomiting: Denies RUQ Epigastric Pain: Denies Facial Edema: None Labor Evaluation Frequency: 2-4 Monitor Mode: Palpation Duration (sec)2399: 60-80 Quality: Mild Pattern: Normal: <= 5 Contractions in 10 Minutes Resting Tone [place]: Relaxed Heart Rate FHR Baseline Rate: 135 Monitor Mode: External US Variability: Minimal - Undetectable to <=5 bpm Category: Category II Pain Presence: None/Denies Pain Type: N/A Datetime: 08/16/2018 07:25 Assessment Type: Ongoing Assessment Maternal Assessment Level of Consciousness: Fully Conscious DTR's/Clonus: DTRs 2+; No Clonus Headache: Denies Blurred Vision: No Respiratory Effort: Unlabored; Regular Rhythm; Equal Expansion Breath Sounds, Left: Clear and Equal Breath Sounds, Right: Clear and Equal Nausea/Vomiting: Denies RUQ Epigastric Pain: Denies Lower Extremities Edema: None Degree: None Upper Extremities Edema: None Degree: None Facial Edema: None Fall Risk Assessment History of Falling: (0) No Secondary Diagnosis: (0) No Ambulatory Aid: (0) Bedrest/Nurse Assist IV Therapy: (20) Yes Gait: (0) Normal/Bedrest/Immobile Mental Status: (0) Oriented to Own Ability Fall Score: 20 Fall Risk Score Definition: No Risk: No action required Datetime: 08/16/2018 07:09 Pain Assessment Pain Scale: 0 Pain Assessment Comments: PT STATES SHE IS NO LONGER FEELING UC'S. Datetime: 08/16/2018 07:00 Labor Evaluation Frequency: 2-4 Monitor Mode: External Duration (sec)2399: 60-100 Quality: Mild Pattern: Normal: <= 5 Contractions in 10 Minutes Resting Tone [place]: Relaxed Heart Rate FHR Baseline Rate: 135 Monitor Mode: External US Variability: Moderate 6-25 bpm Decelerations: None Category: Category I Datetime: 08/16/2018 06:29 Maternal Assessment Level of Consciousness: Fully Conscious Headache: Denies Blurred Vision: No Monitor Mode: External US Pain Assessment Pain Scale: 4 Pain Presence: Intermittent Pain Type: Contraction Pain Location: Abdomen Pain Goal: 2 Pain Relief Measures: Comfort Measures Pain Assessment Comments: PT STATES HER HEADACHE RESOLVED AND HER UC'S ARE NO LONGER STRONG. Datetime: 08/16/2018 06:00 Labor Evaluation Frequency: 2-3.5 Monitor Mode: External Duration (sec)2399: 40-90 Quality: Mild Pattern: Normal: <= 5 Contractions in 10 Minutes Resting Tone [place]: Relaxed Heart Rate FHR Baseline Rate: 135 Monitor Mode: External US Variability: Moderate 6-25 bpm Decelerations: None Category: Category I Datetime: 08/16/2018 05:06 Maternal Assessment Level of Consciousness: Fully Conscious DTR's/Clonus: DTRs 2+; No Clonus Headache: Frontal Blurred Vision: No Respiratory Effort: Unlabored; Regular Rhythm; Equal Expansion Breath Sounds, Left: Clear and Equal Breath Sounds, Right: Clear and Equal Nausea/Vomiting: Denies RUQ Epigastric Pain: Denies Pain Assessment Pain Scale: 5 Pain Presence: Intermittent Pain Type: Contraction Pain Location: Abdomen Pain Goal: 2 Pain Relief Measures: Comfort Measures Pain Assessment Comments: headache at 6/10. tylenol offered. Datetime: 08/16/2018 05:00 Labor Evaluation Frequency: 2-5 Monitor Mode: External Duration (sec)2399: 40-60 Quality: Mild Resting Tone [place]: Relaxed Heart Rate FHR Baseline Rate: 135 Monitor Mode: External US Variability: Moderate 6-25 bpm Accelerations: 15X15 Decelerations: None Category: Category I Pain Assessment Pain Scale: 5 Pain Presence: Intermittent Pain Type: Contraction Pain Location: Back Pain Goal: 3 Pain Relief Measures: Comfort Measures Datetime: 08/16/2018 04:05 Vaginal Exam Dilatation (cms): 2.5 Effacement (%): 60 Station: -3 Exam By: RENAE RN Datetime: 08/16/2018 04:00 Labor Evaluation Frequency: 2-4 Monitor Mode: External Duration (sec)2399: 40-70 Quality: Mild Resting Tone [place]: Relaxed Heart Rate FHR Baseline Rate: 135 Monitor Mode: External US Variability: Moderate 6-25 bpm Accelerations: 15X15 Decelerations: None Category: Category I Pain Assessment Pain Scale: 5 Pain Presence: Intermittent Pain Type: Contraction Pain Location: Back Pain Goal: 3 Pain Relief Measures: Comfort Measures Datetime: 08/16/2018 03:00 Labor Evaluation Frequency: 2-9 Monitor Mode: External Duration (sec)2399: 40-70 Quality: Mild Resting Tone [place]: Relaxed Heart Rate FHR Baseline Rate: 135 Monitor Mode: External US Variability: Moderate 6-25 bpm Accelerations: 15X15 Decelerations: None Category: Category I Pain Assessment Pain Scale: 3 Pain Presence: Intermittent Pain Type: Contraction Pain Location: Back Pain Goal: 3 Pain Relief Measures: Comfort Measures Datetime: 08/16/2018 02:00 Labor Evaluation Frequency: IRREGULAR Monitor Mode: External Duration (sec)2399: 40-70 Quality: Mild Resting Tone [place]: Relaxed Heart Rate FHR Baseline Rate: 135 Monitor Mode: External US Variability: Moderate 6-25 bpm Accelerations: 15X15 Decelerations: None Category: Category I Pain Assessment Pain Scale: 3 Pain Presence: Intermittent Pain Type: Contraction Pain Location: Back Pain Goal: 3 Pain Relief Measures: Comfort Measures Datetime: 08/16/2018 01:00 Labor Evaluation Frequency: IRREGULAR Monitor Mode: External Duration (sec)2399: 40-70 Quality: Mild Resting Tone [place]: Relaxed Heart Rate FHR Baseline Rate: 135 Monitor Mode: External US Variability: Moderate 6-25 bpm Accelerations: 15X15 Decelerations: None Category: Category I Datetime: 08/16/2018 00:00 Labor Evaluation Frequency: 3-5 Monitor Mode: External Duration (sec)2399: 40-70 Quality: Mild Resting Tone [place]: Relaxed Heart Rate FHR Baseline Rate: 135 Monitor Mode: External US Variability: Moderate 6-25 bpm Accelerations: 15X15 Decelerations: None Category: Category I Datetime: 08/15/2018 23:00 Labor Evaluation Frequency: IRREGULAR Monitor Mode: External Duration (sec)2399: 40-70 Quality: Mild Resting Tone [place]: Relaxed Heart Rate FHR Baseline Rate: 140 Monitor Mode: External US Variability: Moderate 6-25 bpm Accelerations: 15X15 Decelerations: None Category: Category I Pain Presence: None/Denies Datetime: 08/15/2018 22:00 Labor Evaluation Frequency: IRREGULAR Monitor Mode: External Duration (sec)2399: 40-60 Quality: Mild Resting Tone [place]: Relaxed Heart Rate FHR Baseline Rate: 135 Monitor Mode: External US Variability: Moderate 6-25 bpm Accelerations: 10X10 Decelerations: None Category: Category I Datetime: 08/15/2018 21:00 Labor Evaluation Frequency: OCCASIONAL Monitor Mode: External Duration (sec)2399: 40-60 Quality: Mild Resting Tone [place]: Relaxed Heart Rate FHR Baseline Rate: 135 Variability: Moderate 6-25 bpm Pain Presence: None/Denies Datetime: 08/15/2018 20:23 Stage of : Antepartum Assessment Type: Ongoing Assessment Maternal Assessment Level of Consciousness: Fully Conscious DTR's/Clonus: DTRs 2+; No Clonus Headache: Denies Blurred Vision: No Respiratory Effort: Unlabored; Regular Rhythm; Equal Expansion Breath Sounds, Left: Clear and Equal Breath Sounds, Right: Clear and Equal Nausea/Vomiting: Denies RUQ Epigastric Pain: Denies Lower Extremities Edema: None Degree: None Upper Extremities Edema: None Degree: None Facial Edema: None Temperature Route: Oral Bedside Blood Glucose: 106 Fall Risk Assessment History of Falling: (0) No Secondary Diagnosis: (0) No Ambulatory Aid: (0) Bedrest/Nurse Assist IV Therapy: (0) No Gait: (0) Normal/Bedrest/Immobile Mental Status: (0) Oriented to Own Ability Fall Score: 0 Fall Risk Score Definition: No Risk: No action required Datetime: 08/15/2018 20:20 Comments: PT EATING DINNER,SITTING UP. Datetime: 08/15/2018 20:00 Labor Evaluation Frequency: IRREGULAR Monitor Mode: External Duration (sec)2399: 40-60 Quality: Mild Resting Tone [place]: Relaxed Heart Rate FHR Baseline Rate: 145 Monitor Mode: External US Variability: Moderate 6-25 bpm Accelerations: 15X15 Decelerations: None Category: Category I Pain Presence: None/Denies Datetime: 08/15/2018 19:22 Assessment Type: Ongoing Assessment Datetime: 08/15/2018 19:00 Labor Evaluation Frequency: 1-5 Monitor Mode: External Duration (sec)2399: 30-60 Quality: Mild Pattern: Normal: <= 5 Contractions in 10 Minutes Resting Tone [place]: Relaxed Heart Rate FHR Baseline Rate: 140 Monitor Mode: External US FHR Baseline Changes: No Baseline Change Variability: Moderate 6-25 bpm Accelerations: 15X15 Category: Category I Pain Assessment Pain Scale: 0 Pain Presence: None/Denies Pain Relief Measures: Comfort Measures Datetime: 08/15/2018 18:36 Labor Evaluation Frequency: 2-3 Monitor Mode: External Duration (sec)2399: 30-60 Quality: Mild Pattern: Normal: <= 5 Contractions in 10 Minutes Resting Tone [place]: Relaxed Heart Rate FHR Baseline Rate: 140 Monitor Mode: External US FHR Baseline Changes: No Baseline Change Variability: Moderate 6-25 bpm Accelerations: 15X15 Decelerations: None Category: Category I Datetime: 08/15/2018 18:25 Pain Assessment Pain Scale: 4 Pain Presence: Intermittent Pain Type: Contraction Pain Location: Back Pain Relief Measures: Comfort Measures Pain Assessment Comments: HER Datetime: 08/15/2018 18:03 Fall Score: 0 Fall Risk Score Definition: No Risk: No action required Datetime: 08/15/2018 18:02 Stage of : Antepartum EGA: 32.2 Arrived By: Wheelchair Vaginal Bleeding: None Vaginal Bleeding: None Maternal Assessment Level of Consciousness: Fully Conscious DTR's/Clonus: DTRs 2+; No Clonus Headache: Denies Blurred Vision: No Respiratory Effort: Unlabored; Regular Rhythm; Equal Expansion Breath Sounds, Left: Clear and Equal Breath Sounds, Right: Clear and Equal Nausea/Vomiting: Denies RUQ Epigastric Pain: Denies Lower Extremities Edema: None (Annotations: scd calf length bilateral applied 1850) Facial Edema: None Fall Risk Assessment History of Falling: (0) No Secondary Diagnosis: (0) No Ambulatory Aid: (0) Bedrest/Nurse Assist IV Therapy: (0) No Gait: (0) Normal/Bedrest/Immobile Mental Status: (0) Oriented to Own Ability Fall Score: 0 Fall Risk Score Definition: No Risk: No action required Labor Evaluation Frequency: 2-4 Duration (sec)2399: 50-60 Quality: Mild Pattern: Normal: <= 5 Contractions in 10 Minutes Resting Tone [place]: Relaxed Pain Assessment Pain Scale: 4 Pain Presence: Intermittent Pain Type: Cramping Pain Location: Abdomen; Back Pain Goal: 0 Vaginal Exam Dilatation (cms): DEFFER Membrane Status: Intact Datetime: 08/15/2018 18:01 Labor Evaluation Frequency: 3 Monitor Mode: External Duration (sec)2399: 50-70 Quality: Mild Pattern: Normal: <= 5 Contractions in 10 Minutes Resting Tone [place]: Relaxed Heart Rate FHR Baseline Rate: 145 Monitor Mode: External US FHR Baseline Changes: No Baseline Change Variability: Moderate 6-25 bpm Accelerations: 15X15 Decelerations: None Category: Category I Datetime: 08/15/2018 15:46 Fall Score: 0 Fall Risk Score Definition: No Risk: No action required Datetime: 08/15/2018 15:45 EGA: 32.2 Presentation 'A': Cephalic
[2018-09-14] MEDS: LACTATED RINGER'S 1,000 ML IV SCH ×3 (03:36→07:50)
[2018-09-14] MEDS: ACCU-CHEK XX SCH ×2 (03:51→14:31)
[2018-09-14] MEDS ORDERED: AMPICILLIN 2 GM/NS (PMX) 100 ML ONE (05:15)
[2018-09-14] MEDS ORDERED: AMPICILLIN 2 GM/NS (PMX) 100 ML IV ONE (05:20)
--- NOTE | 2018-09-14 06:52 | PREAC ---
Date/Time of Note Date/Time of Note DATE: 09/14/18 TIME: 06:51 Anesthesia Eval and Record Evaluation Time Pre-Procedure Interview DATE: 09/14/18 TIME: 06:51 Age 37 Sex female NPO: Other (na) Preoperative diagnosis labor pain Planned procedure epidural Past Medical History Past Medical History: Includes Surgery & Anesthesia Issues No known issue Meds Anticoagulation: No Beta Chad within 24 hr: No Reason Beta Chad not given: Pt. not on B-Chad Reported Medications Insulin Human Regular (Novolin-R U-100) 100 Unit/Ml Soln, 8 UNITS SC AC DINNER, EA 08/15/18 Insulin Human Regular (Novolin-R U-100) 100 Unit/Ml Soln, 8 UNITS SC AC BREAKFAST, EA 08/15/18 Vits W-Ca,Fe,Fa(<1MG) () 1 Tab Tablet, 1 TAB PO DAILY 05/05/12 Current Medications Lactated Ringer's 1,000 ml @ 125 mls/hr Q8H IV Last administered on 09/14/18at 03:36; Admin Dose 125 MLS/HR; Start 09/14/18 at 00:41 Butorphanol Tartrate (Stadol) 2 mg Q2H PRN IV .PAIN; Start 09/14/18 at 01:00 Lidocaine (Xylocaine 1% (Mpf)) 30 ml ONCE PRN INJ .EPISIOTOMY; Start 09/14/18 at 01:00 Oxytocin/Lactated Ringer's 500 ml @ 500 mls/hr ONCE POST IV ; Start 09/14/18 at 01:00 Oxytocin/Lactated Ringer's 500 ml @ 125 mls/hr POST IV ; Start 09/14/18 at 01:00 Ibuprofen (Motrin) 600 mg ONCE PRN PO .PAIN 1-5; Start 09/14/18 at 01:00 Oxytocin/Lactated Ringer's 500 ml @ 0 mls/hr ONCE PRN IV .VAGINAL BLEEDING; Start 09/14/18 at 01:00 Methylergonovine Maleate (Methergine) 0.2 mg ONCE PRN IM .VAGINAL BLEEDING; Start 09/14/18 at 01:00 Carboprost Tromethamine (Hemabate) 250 mcg ONCE PRN IM .VAGINAL BLEEDING; Start 09/14/18 at 01:00 Misoprostol (Cytotec) 1,000 mcg ONCE PRN AL .VAGINAL BLEEDING; Start 09/14/18 at 01:00 Ampicillin 50 ml @ 100 mls/hr Q4H PRN IV IF MAKE CERVICAL CHANGE; Start 09/14/18 at 01:00 Meds reviewed: Yes Allergies Coded Allergies: No Known Allergies (Verified Allergy, Unknown, 09/13/18) Allergies Reviewed: Yes Labs/Studies Labs Reviewed: Reviewed by anesthesiologist Result Diagram: 09/14/18 0025 Laboratory Tests 09/14/18 00:25 Blood Bank Test 09/14/18 00:25 Antibody Screen NEGATIVE Blood Type O POSITIVE Rh Immune Globulin Candidate NO test: N/A Pre-procedure Exam Last vitals Vital Signs Date Temp Pulse Resp B/P (MAP) Pulse Ox O2 O2 Flow FiO2 Time Delivery Rate 09/13/18 97.9 71 18 128/71 Room Air 23:28 (90) Airway: Adequate mouth opening, Adequate thyromental dist Mallampati: Mallampati III Teeth: Normal Lung: Normal Heart: Normal ASA Physical Status ASA physical status: 2 Emergency: None Pre-operative Attestations Prior to commencing anesthesia and surgery, the patient was re-evaluated, there was verification of: *The patient's identity *The results of appropriate recent lab work and preoperative vital signs *The above evaluation not changing prior to induction *Anesthetic plan, risk benefits, alternative and complications discussed with patient/family; questions answered; patient/family understands, accepts and wishes to proceed. DANIE MARES DO Sep 14, 2018 06:52
[2018-09-14] MEDS ORDERED: FENTAnyl 2MCG/ML-ROPIV 0.2% 100 ML ONE (06:54)
[2018-09-14] MEDS ORDERED: NALOXONE (0.4 MG/ML) INJ IV PRN (07:00)
[2018-09-14] MEDS ORDERED: FENTAnyl 2MCG/ML-ROPIV 0.2% 100 ML BAG EPI SCH (07:00)
--- NOTE | 2018-09-14 07:17 | PAC ---
Date/Time of Note Date/Time of Note DATE: 09/14/18 TIME: 07:17 Post-Anesthesia Notes Post-Anesthesia Note Last documented vital signs Vital Signs Date Temp Pulse Resp B/P (MAP) Pulse Ox O2 O2 Flow FiO2 Time Delivery Rate 09/14/18 98 75 18 121/59 98 Room Air 0715 Activity: WNL Respiratory function: WNL Cardiovascular function: WNL Mental status: Baseline Pain reasonably controlled: Yes Hydration appropriate: Yes Nausea/Vomiting absent: Yes DANIE MARES DO Sep 14, 2018 07:17
--- NOTE | 2018-09-14 11:51 | LDN ---
Date/Time of Note Date/Time of Note DATE: 09/14/18 TIME: 11:45 Delivery Summary 36.4 weeks in active labor Outlet vacuum-assisted delivery due to nonreassuring heart tone and maternal fatigue Epidural anesthesia Baby girl 9 Cord around the neck x1 No complications Weeks of Gestation 36.4 Assisted Vaginal Delivery: Vacuum Placenta Delivered: Spontaneously Episiotomy: No Perineal laceration: 0 Anesthesia type: Epidural Sponge & Needle done & correct: Yes All needle counts correct: Yes Any foreign bodies felt in the: No Delivery Information Sex Infant Sex: female Apgars 1 Minute: 9 Suctioning Nose & mouth suctioned at génesis: Yes Umbilical Cord Umbilical cord with: 3 Vessels Cord presentations: nuchal cord Cord Blood was obtained: Yes Mother & Baby Disposition Disposition Mom & Baby to Maternity; Good: Yes PHILIP BLACK MD Sep 14, 2018 11:51
[2018-09-14 12:00] VITALS: BP 123/58; PULSE 67; RESP 19
[2018-09-14] MEDS ORDERED: MAGNESIUM HYDROXIDE 30ML CUP PO PRN (12:00)
[2018-09-14] MEDS ORDERED: DIPHENHYDRAMINE 50 MG INJ IV PRN (12:00)
[2018-09-14] MEDS ORDERED: LANOLIN HPA 1 PKT TOP PRN (12:00)
[2018-09-14] MEDS ORDERED: ONDANSETRON 4 MG INJ IV PRN (12:00)
[2018-09-14] MEDS ORDERED: HYDROCODONE/APAP (5/325) TAB PO PRN ×2 (12:00)
[2018-09-14] MEDS ORDERED: ACETAMINOPHEN 325 MG TAB PO PRN ×2 (12:00)
[2018-09-14] MEDS ORDERED: DIBUCAINE 1% 30 GM OINT TOP PRN (12:00)
[2018-09-14] MEDS ORDERED: ONDANSETRON 4 MG TAB PO PRN (12:00)
[2018-09-14] MEDS ORDERED: DIPHENHYDRAMINE 25 MG CAP PO PRN (12:00)
[2018-09-14] MEDS ORDERED: GLUCAGON 1 MG INJ IM PRN (13:00)
[2018-09-14] MEDS ORDERED: GLUCOSE GEL 15 GRAM TUBE PO PRN ×2 (13:00)
[2018-09-14] MEDS ORDERED: GLUCOSE GEL 15 GRAM TUBE BUCCAL PRN (13:00)
[2018-09-14] MEDS ORDERED: DEXTROSE 50% 50 ML SYRINGE IV PRN ×2 (13:00)
[2018-09-14] MEDS: IBUPROFEN 800 MG TAB PO SCH ×2 (13:13→18:02)
--- NOTE | 2018-09-14 15:25 | NUR ---
Dr. Scott paged because mom's BS is 163 2 hours after meals, awaiting return call. Addendum: 09/14/18 at 1527 by MAILE HINDS RN Amended: Links added.
--- NOTE | 2018-09-14 15:35 | NUR ---
I talked to Dr. Scott and new orders were given related to diet of the patient and per MD to follow the hospital policy regarding Regular insulin coverage. Addendum: 09/14/18 at 1539 by MAILE HINDS RN Amended: Links added.
[2018-09-14] MEDS: LACTATED RINGER'S 1,000 ML IV* SCH ×2 (15:55→19:51)
[2018-09-14 16:00] VITALS: BP 108/58; PULSE 67; RESP 16
--- NOTE | 2018-09-14 16:38 | NUR ---
Raul diaz. removed, pt is due to void. Addendum: 09/14/18 at 1651 by MAILE HINDS RN Amended: Links added.
[2018-09-14] MEDS ORDERED: INSULIN REGULAR, HUMAN 100 UNIT/1 ML 3ML VIAL SC SCH (17:05)
--- NOTE | 2018-09-14 17:50 | NUR ---
Dr. Scott notified of patient's blood sugar 117 before dinner and ordered to discontinue the Humulin R 8 units before dinner and discontinue the 8 units Humulin R before breakfast. Addendum: 09/14/18 at 1829 by MAILE HINDS RN Amended: Links added.
[2018-09-14 19:35] VITALS: BP 99/51; PULSE 69; RESP 18
[2018-09-14] MEDS: SENNA/DOCUSATE NA (8.6MG/50MG) TAB PO PRN (22:35)
[2018-09-15] VITALS: BP 116/63; PULSE 65; RESP 15
[2018-09-15] MEDS: IBUPROFEN 800 MG TAB PO SCH ×5 (00:12→23:40)
[2018-09-15] MEDS: LACTATED RINGER'S 1,000 ML IV* SCH (03:51)
[2018-09-15 04:35] VITALS: BP 120/59; PULSE 69; RESP 16
[2018-09-15] MEDS ORDERED: INSULIN REGULAR, HUMAN 100 UNIT/1 ML 3ML VIAL SC SCH (07:05)
--- NOTE | 2018-09-15 07:07 | NUR ---
EOSS.PT. STABLE. NO RESP. DISTRESS NOTED. NO COMPLAINT OF PAIN OR ANY DISCOMFORT NOTED AT THIS TIME. BONDING WITH HER BABY MOVING TOWARDS EXPECTED GOALS.
[2018-09-15] MEDS: ACCU-CHEK XX SCH ×4 (08:09→21:32)
[2018-09-15 08:10] VITALS: BP 115/62; PULSE 66; RESP 16
--- NOTE | 2018-09-15 12:19 | PN ---
Date/Time of Note Date/Time of Note DATE: 09/15/18 TIME: 12:17 OB Subjective Subjective Subjective Day 1 Stable Feels good Breast-feeding, uterus contracted, lochia normal Normal extremities. No edema, normal reflexes Possible discharge tomorrow Patient is anemic but she is chronically anemic so she has no symptoms and she only dropped 1 g of her hemoglobin from yesterday as it is expected OB Objective HEENT: WNL Heart: Rhythm Normal Lungs: Clear, Equal Abdomen: WNL Extremities: Normal Reflexes: Normal PHILIP BLACK MD Sep 15, 2018 12:19
[2018-09-15 15:30] VITALS: BP 124/62; PULSE 75; RESP 18
--- NOTE | 2018-09-15 18:33 | NUR ---
EOSS: VSS, BREAST AND BOTTLE FEEDING, FUNDUS REMAINS FIRM WITH SCANT TO SMALL AMOUNT OF LOCHIA. BONDING WELL WITH BABY. HOURLY ROUNDING MAINTAINED ON MOTHER/BABY THIS SHIFT.
[2018-09-15 19:50] VITALS: BP 114/55; PULSE 76; RESP 18
--- NOTE | 2018-09-15 20:50 | NUR ---
PTS BLOOD SUGAR AT 2031 AFTER DINNER WAS 183ML/DL,DR. BLACK CALLED AND NOTIFIED. 4UNITS OF HUMAN R INSULIN ORDERED S/C. ORDER PUT IN THE COMPUTER AND CALLED PHARMACY. EXPLAINED TO THE PATIENT AND PT VERBALISED UNDERSTANDING.
[2018-09-15] MEDS ORDERED: INSULIN REGULAR, HUMAN 100 UNIT/1 ML 3ML VIAL SC ONE (21:30)
--- NOTE | 2018-09-15 21:40 | NUR ---
RECEIVED PTS INSULIN AT 2129 FROM PHARMACY.BLOOD SUGAR CHEKED AGAIN AND WAS 149ML/DL,CALLED DR. BLACK AND NOTIFIED THE BLOOD SUGAR RESULTS, SHE SAID ITS OK TO GIVE 4 UNITS OF REG. INSULIN NOW. GAVE 4 UNITS OF HUMAN R INSULIN S/C WITH SNACKS.EXPLAINED TO THE PATIENT THE SIDE EFFECTS AND PT. VERBALISED UNDERSTANDING.
[2018-09-16 04:15] VITALS: BP 111/56; PULSE 73; RESP 18
--- NOTE | 2018-09-16 05:43 | NUR ---
EOSS. PT STABLE. NO RESP. DISTRESS NOTED. NO COMPLAINT OF PAIN OR ANY DISCOMFORT NOTED AT THIS TIME. BONDING WITH HER BABY. MOVING TOWARDS EXPECTED GOALS.
[2018-09-16] MEDS: IBUPROFEN 800 MG TAB PO SCH ×2 (05:54→12:15)
[2018-09-16] MEDS: ACCU-CHEK XX SCH ×3 (07:10→13:50)
[2018-09-16 07:30] VITALS: BP 111/61; PULSE 69; RESP 16
[2018-09-16] MEDS: SENNA/DOCUSATE NA (8.6MG/50MG) TAB PO PRN (08:46)
[2018-09-16] MEDS ORDERED: MEASLES,MUMPS,RUBELLA VACCINE INJ SC* ONE (09:00)
[2018-09-16] MEDS ORDERED: DIPHTH/TET/ACEL PERTUSS (ADULT) 0.5 ML VIAL IM* ONE (09:00)
[2018-09-16] MEDS ORDERED: VARICELLA VACCINE LIVE/PF 1,350 UNIT/0.5 ML ML SC* ONE (09:00)
--- NOTE | 2018-09-16 12:06 | NUR ---
Diabetes Education Referral: Thank you for the referral. Delivered at 36.4 weeks a 6lb 11 oz baby girl Pt known to me from previous admission in August 2018 at which time we had a lengthy conversation regarding her DM care and prepregnancy regimen. Pt has had T2DM since her last (~6 years ago). Followed up with pt at bedside. Reviewed her current levels and discussed the possibility of managing her BG with just diet and exercise. If pt does resume Glimepiride then to only take it in the AM. Pt stated she had enough supplies at home. Pt did not have any further questions.
--- NOTE | 2018-09-16 13:30 | DS ---
Date/Time of Note Date/Time of Note DATE: 09/16/18 TIME: 13:30 Obstetrical Discharge Record Final Diagnosis Final Diagnosis: Term delivered Vaginal Delivery Obstetrical Delivery: Vacuum Extraction Complications Gestational Diabetes Augmentation: Yes Condition on Discharge Physical Assessment Voiding: Yes Bowel Movement: Yes Breast: Soft, non-tender, Filling Fundus: Firm Calf Tenderness: No Patient Condition: Good PHILIP BLACK MD Sep 16, 2018 13:30
--- NOTE | 2018-09-16 14:32 | PD.PPDC ---
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
--- NOTE | 2018-09-16 15:44 | NUR ---
DISCHARGE INST GIVEN AND PT VERBALIZED UNDERSTANDING OF ALL INFO GIVEN AND ALL QUESTIONS ANSWERED. PT DC'D HOME IN STABLE COND WITH BABY VIA WHEELCHAIR Addendum: 09/16/18 at 1548 by ARIN KAMARA RN Amended: Links added.
--- NOTE | 2018-09-19 20:59 | HP ---
Date/Time of Note Date/Time of Note DATE: 09/19/18 TIME: 20:50 OB - History Hx of Present Free Text/Dictation Patient was admitted on September 13 due to contractions and 5 cm dilated 3 para 1 at 36 weeks of . Admission for delivery Chief Complaint: Uterine contractions every 5 minutes and pain Last Menstrual Period: Jan 01, 2018 Estimated Due Date: Oct 08, 2018 : 3 Para: 2 Care: Good Care Ultrasounds: Normal mid trimester US Obstetrical Complications: Gestational Diabetes Past Family/Social History * Past Medical, Surgical, Family and Obstetric Histories reviewed from chart. Blood Type: O+ Rubella: not immune RPR/VDRL: Negative GBS Status: Negative HBsAG: Negative OB Admission Exam Vital Signs Vital Signs Vital Signs Date Temp Pulse Resp B/P (MAP) Pulse Ox O2 O2 Flow FiO2 Time Delivery Rate 09/16/18 98.7 69 16 111/61 Room Air 07:30 (78) Physical Exam HEENT: WNL Heart: Rhythm Normal Lungs: Clear, Equal Abdomen: WNL Extremities: Normal Reflexes: Normal Cervical Dilatation: 5cm Effacement: 75% Station: -2 Membranes: Intact Heart Rate: 120's Varibility: Marked Contractions on Admission: < 5 Minutes Apart Intensity: Moderate OB Assessment/Plan Reason for admission: active labor Other plan: Delivery PHILIP BLACK MD Sep 19, 2018 20:59
== END 2018-09-16 15:25 | disposition home or self-care (01) | DRG 807 ==
LOC: L-D 23:10 → OBT 23:10 → L-D 23:55 → OBT 23:56 → L-D 23:56 → PP1 09-14 12:03
PROVIDERS: ADMIT Obstetrics & Gynecology; ATTEND Obstetrics & Gynecology
PROC: 10D07Z6 Extraction of Products of Conception, Vacuum, Via Natural or Artificial Opening (ICD-10-PCS; principal; 2018-09-14)
DX: O24.429 Gestational diabetes mellitus in childbirth, unspecified control (principal); Z37.0 Single live birth; O76 Abnormality in fetal heart rate and rhythm complicating labor and delivery; O75.81 Maternal exhaustion complicating labor and delivery; O69.81X0 Labor and delivery complicated by cord around neck, without compression, not applicable or unspecified; O99.02 Anemia complicating childbirth; D64.9 Anemia, unspecified; Z3A.36 36 weeks gestation of pregnancy; Z23 Encounter for immunization
CPT/HCPCS: 62319; 76815; 82962; 85025; 85610; 85730; 86592; 86850; 86900; 86901; 90715; 99464; G0463; J0290; J1815; J2590; J3010; J7120

== ENCOUNTER 2018-11-30 07:15 | Day surgery (SDC) | payer MEDICAID ==
--- NOTE | 2018-11-29 06:23 | PREOPHP ---
DATE OF ADMISSION: 11/30/2018 The patient is coming on 11/30/2018 for a tubal ligation. HISTORY OF PRESENT ILLNESS: The patient is a 3, para 3 and she had her last delivery not kevin g ago and she would like to have a tubal ligation that was then performed at the time of delivery due to inability of obtaining a room for her. The patient had signed the papers during . The patient had no medical antecedents. She had a vaginal delivery on 09/14/2018 and she had been reques ting a tubal ligation. The patient was advised for 2 procedures as partial salpingectomy or complete salpingectomy to involve the fimbriated ends of the tube to prevent the ectopic pregnancies and to p revent some of the possible complication of ovarian cancer that happens related and linked to the pre sence of the fallopian tubes. The patient was advised that she will have no chances to do a tuboplas ty if she changes her mind, she knows that and she would like to have a complete salpingectomy to francisca id ectopic rate also. She states she is old and she is not ready to have more babies even if she remarries. PAST MEDICAL HISTORY: LEEP conization of the cervix. Otherwise, she had no other problems. She had 3 vaginal deliveries and she had diabetes during her . FAMILY HISTORY: Diabetes on her father and malignancy on her sister. ALLERGIES: THE PATIENT IS NOT ALLERGIC TO ANY MEDICATION. SOCIAL HISTORY: She does not drink or smoke. She was diagnosed with diabetes during for which she was given glyburide and at this time, we are following the possibility that the diabetes will stay permanently, but at this time she has be en controlled. REVIEW OF SYSTEMS: Negative. PHYSICAL EXAMINATION: VITAL SIGNS: The patient is 5 feet 3 inches and she weighs 149. Blood pressure is 118/78, pulse is 80, respirations 16. HEAD AND NECK: Normal. CHEST: Clear. HEART: Normal sinus rhythm. LUNGS: Clear. ABDOMEN: Soft, nontender, no masses. PELVIC: Uterus normal size. Adnexa are normal. EXTREMITIES: Normal. DIAGNOSIS: Multiparity. PLAN: She is undergoing a pelviscopic salpingectomy. She has been advised of the possible risks and possible complications of the procedure with her alternatives and options. Written information was provided. She had no more questions and agreed to go ahead with the procedure with full understandin g and no more questions. Dictated By: PHILIP RASMUSSEN/NTS Conf#: [id number] DID#: [id number]
[2018-11-30] VITALS (9 sets, daily range): BP systolic 107–118; BP diastolic 52–78; PULSE 56–80; RESP 13–20; Ht 154.9 cm; Wt 66.5 kg
[~2018-11-30] VITALS: Ht 154.9 cm; Wt 66.5 kg
[~2018-11-30 07:15] MED LIST changes: +METF500T24 PO; -SS SC
--- NOTE | 2018-11-30 09:55 | PREAC ---
Date/Time of Note Date/Time of Note DATE: 11/30/18 TIME: 09:53 Anesthesia Eval and Record Evaluation Time Pre-Procedure Interview DATE: 11/30/18 TIME: 09:53 Age 38 Sex female NPO: 8 hrs Preoperative diagnosis permanent sterlization Planned procedure lap BTL Past Medical History Past Medical History: Includes Endo: Diabetes Surgery & Anesthesia Issues No known issue Meds Anticoagulation: No Beta Chad within 24 hr: No Reason Beta Chad not given: Pt. not on B-Chad Reported Medications Metformin Hcl* (Metformin Hcl*) 500 Mg Tablet, 500 MG PO WITH BREAKFAST, #30 TAB 11/29/18 Discontinued Reported Medications Vits W-Ca,Fe,Fa(<1MG) () 1 Tab Tablet, 1 TAB PO DAILY 05/05/12 Current Medications Cefazolin Sodium/ Dextrose 50 ml @ 100 mls/hr PREOP IVPB ; Start 11/30/18 at 10:00; Stop 11/30/18 at 18:00 Meds reviewed: Yes Allergies Coded Allergies: No Known Allergies (Verified Allergy, Unknown, 11/30/18) Allergies Reviewed: Yes Labs/Studies Labs Reviewed: Reviewed by anesthesiologist Result Diagram: 11/30/18 0735 Laboratory Tests 11/30/18 07:35 test: Negative Studies: ECG (sr), CXR (nl) Pre-procedure Exam Last vitals Vital Signs Date Temp Pulse Resp B/P (MAP) Pulse Ox O2 O2 Flow FiO2 Time Delivery Rate 11/30/18 97.5 76 16 118/78 100 Room Air 08:12 (91) Airway: Adequate mouth opening Mallampati: Mallampati I Teeth: Normal Lung: Normal Heart: Normal ASA Physical Status ASA physical status: 2 Emergency: None Planned Anesthetic General/MAC: ETT Nerve block: TAP (bilateral) Planned Pain Management Single shot nerve block, Parenteral pain med Pre-operative Attestations Prior to commencing anesthesia and surgery, the patient was re-evaluated, there was verification of: *The patient's identity *The results of appropriate recent lab work and preoperative vital signs *The above evaluation not changing prior to induction *Anesthetic plan, risk benefits, alternative and complications discussed with patient/family; questions answered; patient/family understands, accepts and wishes to proceed. STACY BILL MD November 30, 2018 09:55
[2018-11-30] MEDS ORDERED: DIPHENHYDRAMINE 50 MG INJ IV PRN (10:00)
[2018-11-30] MEDS ORDERED: OXYCODONE/ACETAMINOPHEN (5/325) TAB PO PRN ×2 (10:00)
[2018-11-30] MEDS ORDERED: KETOROLAC 30 MG INJ IV PRN ×2 (10:00→12:00)
[2018-11-30] MEDS ORDERED: FENTAnyl 50 MCG/ML VIAL IV PRN ×3 (10:00)
[2018-11-30] MEDS ORDERED: HYDROmorphONE 1 MG/5 ML IV SYRINGE IV PRN ×3 (10:00)
[2018-11-30] MEDS ORDERED: ONDANSETRON 4 MG INJ IV PRN (10:00)
[2018-11-30] MEDS ORDERED: MEPERIDINE 25 MG INJ IV PRN (10:00)
[2018-11-30] MEDS ORDERED: ROPIVACAINE 0.5 % 30 ML VIAL ONE (10:01)
[2018-11-30] MEDS ORDERED: METOCLOPRAMIDE 10 MG INJ ONE (10:01)
[2018-11-30] MEDS ORDERED: MIDAZOLAM 1 MG/ML 2 ML INJ ONE (10:01)
[2018-11-30] MEDS ORDERED: ROCURONIUM 50 MG INJ ONE (10:01)
[2018-11-30] MEDS ORDERED: KETOROLAC 30 MG INJ ONE (10:01)
[2018-11-30] MEDS ORDERED: ONDANSETRON 4 MG INJ ONE (10:01)
[2018-11-30] MEDS ORDERED: PROPOFOL 20 ML ONE (10:01)
--- NOTE | 2018-11-30 10:01 | HPN ---
Date/Time of Note Date/Time of Note DATE: 11/30/18 TIME: 10:01 Interval H&P Admission Note Pt. seen H&P reviewed: No system changes PHILIP BLACK MD November 30, 2018 10:01
[2018-11-30] MEDS ORDERED: NEOSTIGMINE 3 MG/3 ML SYRINGE ONE (10:36)
[2018-11-30] MEDS ORDERED: GLYCOPYRROLATE 0.4 MG INJ ONE (10:36)
[2018-11-30] MEDS ORDERED: EPHEDrine 25 MG/5 ML SYG ONE (10:49)
[2018-11-30] MEDS ORDERED: CEFAZOLIN 1 GM INJ ONE (11:20)
[2018-11-30] MEDS ORDERED: BUPIVACAINE 0.25%/EPI (SDV) 30 ML INJ ONE (11:27)
--- NOTE | 2018-11-30 11:33 | PD.PPDC ---
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
--- NOTE | 2018-11-30 11:36 | SIPON ---
Date/Time of Note Date/Time of Note DATE: 11/30/18 TIME: 11:34 Operative Report Preoperative Diagnosis Multiparity Postoperative Diagnosis Same plus in early fibroid uterus Operation/Procedure Performed Pelviscopy ,tubal ligation bilateral salpingectomy Surgeon see signature line account assistant None Anesthesia: general Estimated blood loss: minimal Transfusion Required none Specimen Tubes Grafts/Implants none Complications none PHILIP BLACK MD November 30, 2018 11:35
[2018-11-30] MEDS: CEFAZOLIN 2 GM/50 ML (PMX) 50 ML IVPB SCH (11:53)
--- NOTE | 2018-11-30 13:50 | OPR ---
DATE OF OPERATION: 11/30/2018 PROCEDURE: Pelviscopy and pelviscopic tubal ligation with bilateral salpingectomy. SURGEON: Philip Scott MD ANESTHESIOLOGIST: Viviana Mack MD ANESTHESIA: General anesthesia. DESCRIPTION OF PROCEDURE: The patient was given general anesthesia, placed in the lithotomy position . The perineal and vaginal area and abdomen were prepped and draped and a Carter catheter was placed in the bladder. HUMI catheter was placed inside the uterus for uterine manipulation. A small incisi on was made on the inferior edge of the umbilicus and the abdomen was opened in layers. One stitch w ith #1 Vicryl was placed on either side of the fascia and then the peritoneum was entered bluntly. T he Magdaleno was inserted. A suprapubic puncture was done with 5 mm trocar and visualization of the org ans revealed that the uterus was with early fibroid changes, normal size, retroverted, third degree. Both tubes and ovaries were normal. A second 5 mm trocar was placed laterally on the left side 5 cm below the umbilical line and parallel to the external area of the rectus muscle. The gyrus was plac ed in. The tube was grabbed with a clamp and the mesosalpinx was cauterized all the way from the fim briated end of the tube all the way to the cornual end of the tube. The hemostasis was good. The tu be was cut and removed through a 5 mm scope that was placed laterally and a clamp that was placed on the 10 mm port at the level of the umbilicus. The same thing was done on the other side and both tub es were retrieved without problems. The cavity was checked with plain water. There was no active bl eeding. The incisions of the abdomen were closed with an 0 Vicryl for the fascia and 3-0 Monocryl to all 3 incisions. Marcaine solution was injected in all 3 incisions for pain control. The procedure was finished by removing all the instruments. The gas being deflated of the abdomen and the patient tolerated the procedure well and left the OR awake and stable. Sponge counts and instrument counts were correct. Dictated By: PHILIP RASMUSSEN/RON Conf#: [id number] DID#: [id number]
--- NOTE | 2018-12-01 08:00 | PAC ---
Date/Time of Note Date/Time of Note DATE: 12/01/18 TIME: 08:00 Post-Anesthesia Notes Post-Anesthesia Note Last documented vital signs Vital Signs Date Temp Pulse Resp B/P (MAP) Pulse Ox O2 O2 Flow FiO2 Time Delivery Rate 11/30/18 97.6 66 18 107/57 100 12:56 (74) 11/30/18 Room Air 12:51 Activity: WNL Respiratory function: WNL Cardiovascular function: WNL Mental status: Baseline Pain reasonably controlled: Yes Hydration appropriate: Yes Nausea/Vomiting absent: No STACY BILL MD December 01, 2018 08:00
== END 2018-11-30 13:50 | disposition home or self-care (01) ==
LOC: SDS 07:15
PROVIDERS: ATTEND Obstetrics & Gynecology
DX: Z30.2 Encounter for sterilization (principal); E11.9 Type 2 diabetes mellitus without complications
CPT/HCPCS: 58661; 71045; 81001; 82962; 84703; 85025; 85610; 85730; 88302; 93005; J0690; J1885; J2175; J2250; J2405; J2710; J2765; J2795; Z7512; Z7610; 81003